=== PATIENT | male | born 1935 | race Caucasian/White ===

== ENCOUNTER 2018-02-26 20:10 | Observation (INO) | payer MEDICARE, OTHER ==
[~2018-02-26] VITALS: Ht 182.9 cm; Wt 73.6 kg
[~2018-02-26 20:10] MED LIST: ALLO100T GT; AMLO10TA PO; AMLO10TA82 PO; ASPI-875 PO; ATOR40TA70 PO; BNZ20T PO; FISH OIL 1,2001 EAC1 PO; GABA-488 PO; GARL200T PO; GARL400T13 PO; GLIM4TAB PO; HCT25T PO; HYDR-707 PO; HYDR118S10 PO; HYOS0.1217 PO; HYOS0.127 SL; LEVO500T69 PO; MTP50T PO; MULT-974 PO; OMEGA Q PLUS PO; PNT40TEC PO; [UNRECOGNIZED DRUG - OTHER] PO
--- OUTSIDE RECORDS SUMMARY | 2018-02-26 20:16 | XMS REPORT | Continuity of Care Document ---
Author Author [facility] Organization [facility] Address Unknown Phone Unavailable Allergies Active Description Code Type Severity Reaction Onset Reported/Identified Relationship to Patient Clinical Status Yes NO KNOWN DRUG ALLERGIES UNKNOWN NO KNOWN DRUG ALLERG Yes No Known Drug Allergies [id number] Drug Allergy Unknown N/A 01/20/2011 Medications Medication Packaging Start Date Stop Date Route Dosage Sig ALLOPURINOL TAB 100 MG (ZYLOPRIM) MG 02/06/2018 03/08/2018 BID&0800,2000 OLANZAPINE TAB 2.5 MG (ZYPREXA) MG 02/06/2018 02/06/2018 ONCE&2030 MELATONIN TAB 3 MG (MELATONIN) MG 02/06/2018 02/06/2018 PRN ONCE ACETAMINOPHEN ORAL TABLET 325mg(Tylenol) MG 02/07/2018 03/08/2018 PRN EVERY 6 Hour ALUM/MAG/SIMETH 30CC LIQ (MYLANTA PLUS) cc 02/07/2018 03/09/2018 PRN Q4H POLYETHYLENE GLYCOL POWDER UD PWD (MIRALAX 17GM UNIT DOSE PAKS) gm 02/07/2018 03/09/2018 PRN Q3H ACETAMINOPHEN ORAL TABLET 325mg(Tylenol) MG 02/07/2018 03/09/2018 PRN Q6H CALMOSEPTINE OINT TUBE (RISAMINE OINT) tano 02/07/2018 03/09/2018 PRN QID OLANZAPINE TAB 2.5 MG (ZYPREXA) MG 02/07/2018 02/14/2018 PRN Q6H LOPERAMIDE CAP 2 MG (IMMODIUM) MG 02/07/2018 03/09/2018 PRN QID ALLOPURINOL TAB 100 MG (ZYLOPRIM) MG 02/07/2018 03/08/2018 BID&0800,2000 LACTULOSE SYRUP LIQ 20 GM/30CC (CHRONULAC SYRUP) GM 02/07/2018 03/08/2018 BID&0800,2000 MILK OF MAGNESIA LIQ ml 02/07/2018 03/09/2018 PRN BID MELOXICAM TAB 7.5 MG (MOBIC) MG 03/08/2018 Daily&0900 AMLODIPINE TAB 10 MG (NORVASC) MG 02/07/2018 02/13/2018 Daily&0900 GLIPIZIDE TAB 5 MG (GLUCOTROL) MG 02/07/2018 03/08/2018 Daily&0900 BENAZEPRIL TAB 20 MG (LOTENSIN) MG 02/07/2018 02/13/2018 Daily&0900 BISACODYL SUPPOS 10 MG (DULCOLAX SUPPOS) MG 02/07/2018 03/09/2018 PRN Daily Lorazepam oral tablet 0.25mg (Ativan) MG 02/07/2018 02/17/2018 PRN Q6H OLANZAPINE TAB 2.5 MG (ZYPREXA) MG 02/07/2018 02/07/2018 ONCE&1700 TAMSULOSIN CAP 0.4 MG (FLOMAX) Dose(s) 02/07/2018 03/08/2018 QPM&1800 SIMVASTATIN TAB 10 MG (ZOCOR) MG 03/08/2018 QPM&2000 TRAZODONE TAB 50 MG (DESYREL) MG 03/09/2018 PRN QHS MIRTAZAPINE TAB 15 MG (REMERON) MG 02/07/2018 03/08/2018 QHS&2100 MELATONIN TAB 3 MG (MELATONIN) MG 02/07/2018 03/09/2018 PRN QHS OLANZAPINE TAB 2.5 MG (ZYPREXA) MG 02/08/2018 02/15/2018 PRN Q6H OLANZAPINE TAB 2.5 MG (ZYPREXA) MG 02/08/2018 02/08/2018 ONCE&1130 POLY/BACI/NEOM OINT OINT (NEOSPORIN) tano 02/08/2018 02/08/2018 ONCE&1340 DIVALPROEX SPRINKLE CAP 125 MG (DEPAKOTE SPRINKLE) MG 02/08/2018 02/08/2018 PRN ONCE OLANZAPINE TAB 5 MG (ZYPREXA) MG 03/10/2018 BID&0800,2000 APIXABAN TAB 5 MG (ELIQUIS) MG 02/23/2018 CONTINUOUSEVERY 0 Hour APIXABAN TAB 5 MG (ELIQUIS) MG 03/10/2018 QAM&0800 POLY/BACI/NEOMY 1APP OINT (NEOSPORIN) tano 02/09/2018 02/15/2018 Daily&0900 POLY/BACI/NEOM OINT OINT (NEOSPORIN) tano 02/09/2018 02/15/2018 Daily&0900 OLANZAPINE TAB 2.5 MG (ZYPREXA) MG 02/11/2018 02/11/2018 ONCE&2237 QUETIAPINE TAB 25 MG (SEROQUEL) MG 02/12/2018 03/14/2018 PRN Q6H QUETIAPINE TAB 25 MG (SEROQUEL) MG 02/12/2018 03/13/2018 QPM&2000 QUETIAPINE TAB 25 MG (SEROQUEL) MG 02/13/2018 03/14/2018 QAM&0800 HALOPERIDOL VIAL INJ 5 MG/CC (HALDOL 1CC VIAL) MG 02/13/2018 02/13/2018 PRN ONCE OLANZAPINE TAB 2.5 MG (ZYPREXA) MG 02/13/2018 02/20/2018 PRN Q6H OLANZAPINE IM VIAL INJ 10 MG/VIAL (ZYPREXA IM VIAL) MG 02/13/2018 03/15/2018 PRN Q6H AMLODIPINE TAB 10 MG (NORVASC) MG 02/16/2018 03/17/2018 Daily&0900 BENAZEPRIL TAB 20 MG (LOTENSIN) MG 02/16/2018 02/22/2018 Daily&0900 IPRATROPIUM/ALBUTEROL INH SOLN (DUO-NEB INH SOLN) MLS 02/16/2018 02/26/2018 TID&0800,1400,2000 Problems Date Dx Coded Attending Type Code Diagnosis Diagnosed By 02/06/2018 Dilcia Miller F03 UNSPECIFIED DEMENTIA 02/06/2018 Dilcia Miller R45.851 SUICIDAL IDEATIONS 02/06/2018 Dilcia Miller V62.84 SUICIDAL IDEATION 02/06/2018 Dilcia Miller F03 UNSPECIFIED DEMENTIA 02/06/2018 Dilcia Miller R45.851 SUICIDAL IDEATIONS 02/06/2018 Dilcia Miller V62.84 SUICIDAL IDEATION 02/08/2018 Dilcia Miller F03 UNSPECIFIED DEMENTIA 02/08/2018 Dilcia Miller R45.851 SUICIDAL IDEATIONS 02/08/2018 Dilcia Miller V62.84 SUICIDAL IDEATION 02/08/2018 Dilcia Miller F03 UNSPECIFIED DEMENTIA 02/08/2018 Dilcia Miller R45.851 SUICIDAL IDEATIONS 02/08/2018 Dilcia Miller V62.84 SUICIDAL IDEATION 02/12/2018 Dilcia Miller F03 UNSPECIFIED DEMENTIA 02/12/2018 Dilcia Miller R45.851 SUICIDAL IDEATIONS 02/12/2018 Dilcia Miller V62.84 SUICIDAL IDEATION Procedures There is no data. Results Test Result Range Rapid Drug Screen + ETOH,Medical - 02/06/18 18:38 Amphetamine NEGATIVE NEGATIVE Barbiturates NEGATIVE NEGATIVE Benzodiazepines NEGATIVE NEGATIVE Cocaine NEGATIVE NEGATIVE Ethanol, Urine <10.00 mg/dL 20.00-80.00 Marijuana NEGATIVE NEGATIVE Methylenedioxymethamphetamine NEGATIVE NEGATIVE Opiates NEGATIVE NEGATIVE Oxycodone NEGATIVE NEGATIVE Phencyclidine NEGATIVE NEGATIVE Propoxyphene NEGATIVE NEGATIVE Tricyclic Antidepressant NEGATIVE NEGATIVE EKG - 02/06/18 18:38 EKG Complete Lipid Panel - 02/07/18 05:30 C/HDL 3.8 3.7-6.7 Cholesterol 121 mg/dL 100-240 HDL 32 mg/dL 30-85 LDL-Calculated 73 mg/dL 0-100 Trig 80 mg/dL 35-160 VLDL 16 mg/dL 0-42 EKG - 02/07/18 11:18 EKG Complete BMP - 02/08/18 04:57 Anion Gap 14 6-14 BUN 33 mg/dL 5-25 Calcium 8.5 mg/dL 8.3-10.4 Chloride 114 mmol/L 95-114 CO2 22 mEq/L 22-33 Creat 1.44 mg/dL 0.50-1.50 eGFR 47 mL/min/1.73m2 >59 Glucose 68 mg/dL 70-110 Osmo 306 280-295 Potassium 3.8 mmol/L 3.5-5.3 Sodium 146 mmol/L 134-148 Encounters ACCT No. Visit Date/Time Discharge Status Pt. Type Provider Facility Loc./Unit Complaint [id number] 03/17/2014 10:57:00 03/22/2014 10:30:00 DIS Inpatient [id number] 01/29/2014 08:22:00 01/29/2014 23:59:59 CLS Outpatient [id number] 10/11/2013 11:56:00 10/11/2013 23:59:59 CLS Outpatient [id number] 09/24/2013 14:56:00 09/24/2013 23:59:59 CLS Outpatient [id number] 08/27/2013 14:01:00 08/27/2013 23:59:59 CLS Outpatient [id number] 06/05/2013 16:12:00 06/05/2013 23:59:59 CLS Outpatient [id number] 05/22/2013 11:55:00 05/28/2013 11:30:00 DIS Inpatient [id number] 05/18/2013 09:37:00 05/18/2013 23:59:59 CLS Outpatient [id number] 05/15/2013 12:00:00 05/15/2013 23:59:59 CLS Outpatient [id number] 05/03/2013 02:55:00 05/03/2013 05:19:00 DIS Emergency [id number] 02/26/2018 20:12:00 ACT Emergency RODRIGO ABREU MD [facility] ER OBSERVATION [id number] 02/06/2018 20:00:00 02/17/2018 12:04:[address] [facility] [id number] 02/06/2018 21:29:57 Document Registration
--- NOTE | 2018-02-26 20:54 | ED Psychosocial ---
General Chief Complaint: Psych/Social Disorder Stated Complaint: OBSERVATION Nursing Triage Note: PT BROUGHT IN BY EMS FROM [facility] WITH COMPLAINT OF SUICIDIAL THOUGHTS. EARLIER TONIGHT, PT ATTEMPTED TO WRAP ARM PROTECTOR AROUND HIS NECK. PT IS RECENT DISCHARGE FROM [facility]. [facility] WAS CONTACTED, BUT DO NOT HAVE A BED UNTIL TOMORROW. Source: patient, family (son Kenyon) Exam Limitations: clinical condition (dementia) History of Present Illness Date Seen by Provider: Feb 26, 2018 Time Seen by Provider: 20:44 Initial Comments Patient presents to the ER by EMS from the living center where he was staying and apparently his son walked in and saw that he had a sock or cord wrapped up twisted around his neck trying to kill himself. He was making suicidal statements. Patient has never made a suicidal attempt or suicidal statement before according to the son but he has stayed in [facility] just prior to being [facility] for [facility]. He has some red elliott on his neck and the son was worried about it might of hurt something in his neck. The patient says is having a little pain on the left side of his neck. He is not having any nausea, pain elsewhere, shortness of breath, stridor, wheezing , fevers or chills. He ate dinner before coming over. Allergies and Home Medications Allergies Coded Allergies: No Known Drug Allergies (Unverified , 01/20/11) Home Medications Allopurinol 100 Mg Tab, 100 MG GT DAILY Prescribed by: FREDERICK MARSHALL on 03/22/14908 Amlodipine Besylate 10 Mg Tablet, 20 MG PO DAILY, (Reported) TAKES 2 (10MG) TABLETS DAILY Atorvastatin Calcium 40 Mg Tablet, 40 MG PO DAILY, (Reported) Benazepril Hcl 20 Mg Tab, 40 MG PO DAILY, (Reported) TAKES 2 (20MG) TABLETS DAILY Gabapentin 300 Mg Capsule, 300 MG PO TID, (Reported) Glimepiride 4 Mg Tablet, 8 MG PO DAILY, (Reported) TAKES 2 (4MG) TABLETS DAILY Hydrocodone/Acetaminophen 1 Each Tablet, 1 TAB PO Q6H PRN for PAIN, (Reported) Levofloxacin 500 Mg Tab, 1 EACH PO DAILY Prescribed by: FREDERICK MARSHALL on 03/22/14 09 Metoprolol Tartrate 50 Mg Tablet, 50 MG PO BID, (Reported) Patient Home Medication List Home Medication List Reviewed: Yes Constitutional: No chills, No diaphoresis, No fever, No malaise EENTM: No ear discharge, No ear pain, No double vision, No eye pain Respiratory: No cough, No short of breath, No stridor, No wheezing Cardiovascular: No chest pain, No edema Gastrointestinal: No abdominal pain, No constipation, No nausea Genitourinary: No discharge, No dysuria Musculoskeletal: No back pain, No joint pain Skin: No pruritus, No rash Past Dybjqtl-Znrphf-Kvzlsk Hx Patient Social History Alcohol Use: Denies Use Recreational Drug Use: No Smoking Status: Former Smoker Recent Foreign Travel: No Contact w/Someone Who Travel: No Recent Infectious Disease Expo: No Immunizations Up To Date Tetanus Booster (TDap): Unknown PED Vaccines UTD: Yes Date of Pneumonia Vaccine: Aug 26, 2013 Past Medical History Surgeries: Yes Respiratory: No Cardiac: Yes Hypertension Neurological: Yes Dementia Reproductive Disorders: No Sexually Transmitted Disease: No Genitourinary: Yes Benign Prostatic Hyperpl, Kidney Stones Gastrointestinal: Yes Chronic Constipation, Diverticulosis Musculoskeletal: Yes (FELL OFF A LADDER) Arthritis, Chronic Back Pain Endocrine: Yes Diabetes, Non-Insulin dep Hearing Impairment: Hard of Hearing Cancer: No Psychosocial: Yes Suicide Attempts, Depression Nursing Suicide Risk Notes: PER [facility], PT WRAPPED ARM PROTECTOR AROUND NECK. Integumentary: Yes (wearing a sock dsg to left FA and left knee abrasion/skin tear) Recent Skin Changes Blood Disorders: No Family Medical History Patient reports no known family medical history. Physical Exam Vital Signs Vital Signs - First Documented 02/26/18 20:13 Temp 98.0 Pulse 93 Resp 20 B/P (MAP) 147/83 (104) Pulse Ox 96 O2 Delivery Room Air Capillary Refill : Less Than 3 Seconds General Appearance: WD/WN, no apparent distress HEENT: PERRL/EOMI, normal ENT inspection, TMs normal, pharynx normal Neck: full range of motion, supple, other (erythematous abrasions bilat) Respiratory: chest non-tender, lungs clear, normal breath sounds, no respiratory distress, no accessory muscle use Cardiovascular: normal peripheral pulses, regular rate, rhythm, no edema Gastrointestinal: normal bowel sounds, non tender, soft Neurologic/Psychiatric: alert, normal mood/affect, oriented x 3 Appearance/Memory: appropriate appearance, neat, impaired insight, impaired recent memory Behavior/Eye Contact: cooperative, good eye contact Thoughts/Hallucinations: normal thought pattern, no apparent hallucination Skin: normal color, warm/dry Progress/Results/Core Measures Results/Orders Lab Results Laboratory Tests Test 02/26/18 21:40 Range/Units White Blood Count 9.9 4.3-11.0 10^3/uL Red Blood Count 3.81 L 4.35-5.85 10^6/uL Hemoglobin 12.7 L 13.3-17.7 G/DL Hematocrit 37 L 40-54 % Mean Corpuscular Volume 98 80-99 FL Mean Corpuscular Hemoglobin 33 25-34 PG Mean Corpuscular Hemoglobin Concent 34 32-36 G/DL Red Cell Distribution Width 14.8 H 10.0-14.5 % Platelet Count 226 130-400 10^3/uL Mean Platelet Volume 10.2 7.4-10.4 FL Neutrophils (%) (Auto) 50 42-75 % Lymphocytes (%) (Auto) 38 12-44 % Monocytes (%) (Auto) 8 0-12 % Eosinophils (%) (Auto) 5 0-10 % Basophils (%) (Auto) 0 0-10 % Neutrophils # (Auto) 4.9 1.8-7.8 X 10^3 Lymphocytes # (Auto) 3.7 1.0-4.0 X 10^3 Monocytes # (Auto) 0.8 0.0-1.0 X 10^3 Eosinophils # (Auto) 0.5 H 0.0-0.3 10^3/uL Basophils # (Auto) 0.0 0.0-0.1 10^3/uL Urine Color YELLOW Urine Clarity CLEAR Urine pH 5 5-9 Urine Specific [place] 1.020 1.016-1.022 Urine Protein 4+ NEGATIVE Urine Glucose (UA) 2+ H NEGATIVE Urine Ketones NEGATIVE NEGATIVE Urine Nitrite NEGATIVE NEGATIVE Urine Bilirubin NEGATIVE NEGATIVE Urine Urobilinogen NORMAL NORMAL MG/DL Urine Leukocyte Esterase NEGATIVE NEGATIVE Urine RBC (Auto) 3+ H NEGATIVE Urine RBC 5-10 H /HPF Urine WBC NONE /HPF Urine Crystals NONE /LPF Urine Bacteria NONE /HPF Urine Casts NONE /LPF Urine Mucus NEGATIVE /LPF Urine Culture Indicated NO Sodium Level 146 H 135-145 MMOL/L Potassium Level 4.1 3.6-5.0 MMOL/L Chloride Level 114 H 98-107 MMOL/L Carbon Dioxide Level 21 21-32 MMOL/L Anion Gap 11 5-14 MMOL/L Blood Urea Nitrogen 31 H 7-18 MG/DL Creatinine 1.65 H 0.60-1.30 MG/DL Estimat Glomerular Filtration Rate 40 BUN/Creatinine Ratio 19 Glucose Level 256 H 70-105 MG/DL Calcium Level 8.8 8.5-10.1 MG/DL Total Bilirubin 0.5 0.1-1.0 MG/DL Aspartate Amino Transf (AST/SGOT) 39 H 5-34 U/L Alanine Aminotransferase (ALT/SGPT) 44 0-55 U/L Alkaline Phosphatase 89 40-136 U/L Total Protein 6.1 L 6.4-8.2 GM/DL Albumin 3.6 3.2-4.5 GM/DL Salicylates Level < 5.0 L 5.0-20.0 MG/DL Urine Opiates Screen NEGATIVE NEGATIVE Urine Oxycodone Screen NEGATIVE NEGATIVE Urine Methadone Screen NEGATIVE NEGATIVE Urine Propoxyphene Screen NEGATIVE NEGATIVE Acetaminophen Level < 10 L 10-30 UG/ML Urine Barbiturates Screen NEGATIVE NEGATIVE Ur Tricyclic Antidepressants Screen POSITIVE H NEGATIVE Urine Phencyclidine Screen NEGATIVE NEGATIVE Urine Amphetamines Screen NEGATIVE NEGATIVE Urine Methamphetamines Screen NEGATIVE NEGATIVE Urine Benzodiazepines Screen NEGATIVE NEGATIVE Urine Cocaine Screen NEGATIVE NEGATIVE Urine Cannabinoids Screen NEGATIVE NEGATIVE Serum Alcohol < 10 <10 MG/DL My Orders Orders - BREA JANE Ua Culture If Indicated (02/26/18 20:49) Cbc With Automated Diff (02/26/18 20:49) Comprehensive Metabolic Panel (02/26/18 20:49) Alcohol (02/26/18 20:49) Drug Screen Stat (Urine) (02/26/18 20:49) Acetaminophen (02/26/18 20:49) Salicylate (02/26/18 20:49) Saline Lock/Iv-Start (02/26/18 20:49) Monitor-Rhythm Ecg Trace Only (02/26/18 20:49) Ct Cervical Spine Wo (02/26/18 20:49) Vital Signs/I&O 02/26/18 20:13 Temp 98.0 Pulse 93 Resp 20 B/P (MAP) 147/83 (104) Pulse Ox 96 O2 Delivery Room Air Blood Pressure Mean: 104 Diagnostic Imaging Diagonstic Imaging: CT Plain Films/CT/US/NM/MRI: c-spine Comments NAME: LYNN ABARCA [facility] REC#: [id number] PHYSICIAN: BREA JANE MD CC: BUFFY MARTIN MD; BREA JANE Page 2 of 2 RADIOLOGY REPORT [facility] [place] [place] CC: BUFFY MARTIN MD; BREA JANE Page 1 of 2 RADIOLOGY REPORT NAME: LYNN ABARCA [facility] REC#: [id number] PT STATUS: REG ER : 1935 PHYSICIAN: BREA JANE MD ADMIT DATE: 02/26/18/ER Signed Date of Exam: 02/26/18 CT CERVICAL SPINE WO PROCEDURE: CT cervical spine without contrast. TECHNIQUE: Multiple contiguous axial images were obtained through the cervical spine without the use of intravenous contrast. Sagittal and coronal reformations were then performed. INDICATION: Neck pain. COMPARISON: 03/16/2014. FINDINGS: Sagittal and coronal reformatted images are available. There is loss of normal lordotic curve due to marked degenerative disc disease and facet disease from C3-C7. There is loss of disc space height with hypertrophic bony bridging of the endplates from C3-C7. There is hypertrophy of the uncovertebral joints noted as well. There is moderate to severe encroachment upon the left neural foramen at C4-C5 due to uncovertebral hypertrophy. Facets show no evidence of fracture. No evidence of locked facet. The surrounding soft tissues appear normal. IMPRESSION: Advanced degenerative cervical disc disease C3 through C7. Overall appearance has changed very little when compared with previous examination. No acute abnormality is demonstrated. Dictated by: Dictated on workstation # [id number] Dict: 02/26/182107 Trans: 02/26/182141 Interpreted by: BUFFY MARTIN MD Electronically signed by: BUFFY MARTIN MD 02/26/182141 Reviewed: Reviewed by Me Departure Communication (Admissions) Time/Spoke to Admitting Phy: 22:27 Sara: Discussed case lab plan and will consult social media marketer to get placed in [facility] tomorrow. Impression Primary Impression: Suicide attempt by self-inflicted suffocation Disposition: 09 ADMITTED INPATIENT Condition: Stable Admissions Decision to Admit Reason: Admit from ER (General) Decision to Admit/Date: Feb 26, 2018 Time/Decision to Admit Time: 22:28 Departure-Patient Inst. Referrals: FREDERICK MARSHALL MD (PCP/Family) Primary Care Physician Copy Copies To 1: FREDERICK MARSHALL MD, TITUS J Feb 26, 2018 20:54
--- NOTE | 2018-02-26 21:44 | Diagnostic Imaging Report ---
PROCEDURE: CT cervical spine without contrast. TECHNIQUE: Multiple contiguous axial images were obtained through the cervical spine without the use of intravenous contrast. Sagittal and coronal reformations were then performed. INDICATION: Neck pain. COMPARISON: 03/16/2014. FINDINGS: Sagittal and coronal reformatted images are available. There is loss of normal lordotic curve due to marked degenerative disc disease and facet disease from C3-C7. There is loss of disc space height with hypertrophic bony bridging of the endplates from C3-C7. There is hypertrophy of the uncovertebral joints noted as well. There is moderate to severe encroachment upon the left neural foramen at C4-C5 due to uncovertebral hypertrophy. Facets show no evidence of fracture. No evidence of locked facet. The surrounding soft tissues appear normal. IMPRESSION: Advanced degenerative cervical disc disease C3 through C7. Overall appearance has changed very little when compared with previous examination. No acute abnormality is demonstrated. Dictated by: Dictated on workstation # [id number]
[2018-02-26 21:54] LABS: BILIRUBIN,URINE NEGATIVE (NEGATIVE); CLARITY,URINE CLEAR; COLOR,URINE YELLOW; GLUCOSE, URINE (UA) 2+ (NEGATIVE); KETONES,URINE NEGATIVE (NEGATIVE); LEUKOCYTE ESTERASE ,URINE NEGATIVE (NEGATIVE); NITRITE,URINE NEGATIVE (NEGATIVE); PH,URINE 5 (5-9); PROTEIN,URINE 4+ (NEGATIVE); UROBILINOGEN,URINE NORMAL (NORMAL)
[2018-02-26 22:01] LABS: BASOPHILS % (AUTO) 0 % (0-10); EOSINOPHILS # (AUTO) 0.5 10^3/uL (0.0-0.3); EOSINOPHILS % (AUTO) 5 % (0-10); HEMATOCRIT 37 % (40-54); HEMOGLOBIN 12.7 G/DL (13.3-17.7); LYMPHOCYTES # (AUTO) 3.7 X 10^3 (1.0-4.0); LYMPHOCYTES % (AUTO) 38 % (12-44); MEAN CORPUSCULAR HEMOGLOBIN 33 PG (25-34); MEAN CORPUSCULAR HGB CONC 34 G/DL (32-36); MEAN CORPUSCULAR VOLUME 98 FL (80-99); MEAN PLATELET VOLUME 10.2 FL (7.4-10.4); MONOCYTES # (AUTO) 0.8 X 10^3 (0.0-1.0); MONOCYTES % (AUTO) 8 % (0-12); NEUTROPHILS # (AUTO) 4.9 X 10^3 (1.8-7.8); NEUTROPHILS % (AUTO) 50 % (42-75); PLATELET COUNT 226 10^3/uL (130-400); RED BLOOD COUNT 3.81 10^6/uL (4.35-5.85); RED CELL DISTRIBUTION WIDTH 14.8 % (10.0-14.5); WHITE BLOOD COUNT 9.9 10^3/uL (4.3-11.0)
[2018-02-26 22:06] LABS: AMPHETAMINE SCREEN, URINE NEGATIVE (NEGATIVE); BARBITURATE SCREEN URINE NEGATIVE (NEGATIVE); BENZODIAZEPINES SCREEN URINE NEGATIVE (NEGATIVE); CANNABINOID SCREEN, URINE NEGATIVE (NEGATIVE); COCAINE SCREEN URINE NEGATIVE (NEGATIVE); METHADONE STAT NEGATIVE (NEGATIVE); METHAMPHETAMINE SCREEN URINE S NEGATIVE (NEGATIVE); OPIATE SCREEN URINE NEGATIVE (NEGATIVE); OXYCODONE STAT NEGATIVE (NEGATIVE); PROPOXYPHENE STAT NEGATIVE (NEGATIVE); TRICYCLIC ANTIDEPRESSANTS SCRE POSITIVE (NEGATIVE)
[2018-02-26 22:14] LABS: ALANINE AMINOTRANSFERASE 44 U/L (0-55); ALBUMIN 3.6 GM/DL (3.2-4.5); ALKALINE PHOSPHATASE 89 U/L (40-136); BILIRUBIN,TOTAL 0.5 MG/DL (0.1-1.0); BUN/CREATININE RATIO 19; CALCIUM 8.8 MG/DL (8.5-10.1); CARBON DIOXIDE 21 MMOL/L (21-32); CHLORIDE 114 MMOL/L (98-107); CREATININE SERUM 1.65 MG/DL (0.60-1.30); GFR ESTIMATED 40; GLUCOSE 256 MG/DL (70-105); POTASSIUM 4.1 MMOL/L (3.6-5.0); SALICYLATE < 5.0 MG/DL (5.0-20.0); SODIUM 146 MMOL/L (135-145); TOTAL PROTEIN 6.1 GM/DL (6.4-8.2)
[2018-02-26 22:21] LABS: ACETAMINOPHEN < 10 UG/ML (10-30)
--- OUTSIDE RECORDS SUMMARY | 2018-02-26 22:53 | XMS REPORT | Continuity of Care Document ---
Author Author [facility] Organization [facility] Address Unknown Phone Unavailable Allergies Active Description Code Type Severity Reaction Onset Reported/Identified Relationship to Patient Clinical Status Yes NO KNOWN DRUG ALLERGIES UNKNOWN NO KNOWN DRUG ALLERG Yes No Known Drug Allergies [id number] Drug Allergy Unknown N/A 01/20/2011 Medications Medication [...] 3.8 mmol/L 3.5-5.3 Sodium 146 mmol/L 134-148 Complete blood count (CBC) with automated white blood cell (WBC) differential - 02/26/18 21:40 Blood leukocytes automated count (number/volume) 9.9 10*3/uL 4.3-11.0 Blood erythrocytes automated count (number/volume) 3.81 10*6/uL 4.35-5.85 Venous blood hemoglobin measurement (mass/volume) 12.7 g/dL 13.3-17.7 Blood hematocrit (volume fraction) 37 % 40-54 Automated erythrocyte mean corpuscular volume 98 [foz_us] 80-99 Automated erythrocyte mean corpuscular hemoglobin (mass per erythrocyte) 33 pg 25-34 Automated erythrocyte mean corpuscular hemoglobin concentration measurement ( mass/volume) 34 g/dL 32-36 Automated erythrocyte distribution width ratio 14.8 % 10.0-14.5 Automated blood platelet count (count/volume) 226 10*3/uL 130-400 Automated blood platelet mean volume measurement 10.2 [foz_us] 7.4-10.4 Automated blood neutrophils/100 leukocytes 50 % 42-75 Automated blood lymphocytes/100 leukocytes 38 % 12-44 Blood monocytes/100 leukocytes 8 % 0-12 Automated blood eosinophils/100 leukocytes 5 % 0-10 Automated blood basophils/100 leukocytes 0 % 0-10 Blood neutrophils automated count (number/volume) 4.9 10*3 1.8-7.8 Blood lymphocytes automated count (number/volume) 3.7 10*3 1.0-4.0 Blood monocytes automated count (number/volume) 0.8 10*3 0.0-1.0 Automated eosinophil count 0.5 10*3/uL 0.0-0.3 Automated blood basophil count (count/volume) 0.0 10*3/uL 0.0-0.1 Urine drug screening test - 02/26/18 21:40 Urine phencyclidine detection by screening method NEGATIVE NEGATIVE Urine benzodiazepines detection by screening method NEGATIVE NEGATIVE Urine cocaine detection NEGATIVE NEGATIVE Urine amphetamines detection by screening method NEGATIVE NEGATIVE Urine methamphetamine detection by screening method NEGATIVE NEGATIVE Urine cannabinoids detection by screening method NEGATIVE NEGATIVE Urine opiates detection by screening method NEGATIVE NEGATIVE Urine barbiturates detection NEGATIVE NEGATIVE Screening urine tricyclic antidepressants detection POSITIVE NEGATIVE Urine methadone detection by screening method NEGATIVE NEGATIVE Urine oxycodone detection NEGATIVE NEGATIVE Urine propoxyphene detection NEGATIVE NEGATIVE Complete urinalysis with reflex to culture - 02/26/18 21:40 Urine color determination YELLOW NRG Urine clarity determination CLEAR NRG Urine pH measurement by test strip 5 5-9 Specific gravity of urine by test strip 1.020 1.016- 1.022 Urine protein assay by test strip, semi-quantitative 4+ NEGATIVE Urine glucose detection by automated test strip 2+ NEGATIVE Erythrocytes detection in urine sediment by light microscopy 3+ NEGATIVE Urine ketones detection by automated test strip NEGATIVE NEGATIVE Urine nitrite detection by test strip NEGATIVE NEGATIVE Urine total bilirubin detection by test strip NEGATIVE NEGATIVE Urine urobilinogen measurement by automated test strip (mass/volume) NORMAL NORMAL Urine leukocyte esterase detection by dipstick NEGATIVE NEGATIVE Automated urine sediment erythrocyte count by microscopy (number/high power field) [HPF] NRG Automated urine sediment leukocyte count by microscopy (number/high power field ) NONE NRG Bacteria detection in urine sediment by light microscopy NONE NRG Crystals detection in urine sediment by light microscopy NONE NRG Casts detection in urine sediment by light microscopy NONE NRG Mucus detection in urine sediment by light microscopy NEGATIVE NRG Complete urinalysis with reflex to culture NO [facility] Comprehensive metabolic panel - 02/26/18 21:40 Serum or plasma sodium measurement (moles/volume) 146 mmol/L 135-145 Serum or plasma potassium measurement (moles/volume) 4.1 mmol/L 3.6-5.0 Serum or plasma chloride measurement (moles/volume) 114 mmol/L 98-107 Carbon dioxide 21 mmol/L 21-32 Serum or plasma anion gap determination (moles/volume) 11 mmol/L 5-14 Serum or plasma urea nitrogen measurement (mass/volume) 31 mg/dL 7-18 Serum or plasma creatinine measurement (mass/volume) 1.65 mg/dL 0.60-1.30 Serum or plasma urea nitrogen/creatinine mass ratio 19 NRG Serum or plasma creatinine measurement with calculation of estimated glomerular filtration rate 40 NRG Serum or plasma glucose measurement (mass/volume) 256 mg/dL 70-105 Serum or plasma calcium measurement (mass/volume) 8.8 mg/dL 8.5-10.1 Serum or plasma total bilirubin measurement (mass/volume) 0.5 mg/dL 0.1-1.0 Serum or plasma alkaline phosphatase measurement (enzymatic activity/volume) 89 U/L 40-136 Serum or plasma aspartate aminotransferase measurement (enzymatic activity/ volume) 39 U/L 5-34 Serum or plasma alanine aminotransferase measurement (enzymatic activity/volume ) 44 U/L 0-55 Serum or plasma protein measurement (mass/volume) 6.1 g/dL 6.4-8.2 Serum or plasma albumin measurement (mass/volume) 3.6 g/dL 3.2-4.5 Serum or plasma salicylates measurement (mass/volume) - 02/26/18 21:40 Serum or plasma salicylates measurement (mass/volume) < mg/dL 5.0-20.0 Serum or plasma acetaminophen measurement (mass/volume) - 02/26/18 21:40 Serum or plasma acetaminophen measurement (mass/volume) < ug/mL 10-30 Serum or plasma ethanol measurement (mass/volume) - 02/26/18 21:40 Serum or plasma ethanol measurement (mass/volume) < mg/dL <10 Encounters ACCT No. Visit Date/Time Discharge Status Pt. Type Provider Facility Loc./Unit Complaint [id number] 03/17/2014 10:57:00 03/22/2014 10:30:00 DIS Inpatient [id number] 01/29/2014 08:22:00 01/29/2014 23:59:59 CLS Outpatient [id number] 10/11/2013 11:56:00 10/11/2013 23:59:59 CLS Outpatient [id number] 09/24/2013 14:56:00 09/24/2013 23:59:59 CLS Outpatient [id number] 08/27/2013 14:01:00 08/27/2013 23:59:59 CLS Outpatient [id number] 06/05/2013 16:12:00 06/05/2013 23:59:59 CLS Outpatient [id number] 05/22/2013 11:55:00 05/28/2013 11:30:00 DIS Inpatient [id number] 05/18/2013 09:37:00 05/18/2013 23:59:59 CLS Outpatient [id number] 05/15/2013 12:00:00 05/15/2013 23:59:59 CLS Outpatient [id number] 05/03/2013 02:55:00 05/03/2013 05:19:00 DIS Emergency [id number] 02/26/2018 20:12:00 ACT Emergency RODRIGO ABREU MD [facility] ER OBSERVATION [id number] 02/06/2018 20:00:00 02/17/2018 12:04:00 DIS Inpatient Paul [facility] [id number] 02/06/2018 21:29:57 Document Registration
[2018-02-26 23:30] VITALS: BP 146/79
[2018-02-26] MEDS ORDERED: LORazepam INJ 2 MG/ML (ATIVAN) VIAL IV PRN (23:45)
[2018-02-26] MEDS ORDERED: ACETAMINOPHEN 500 MG TAB (TYLENOL) PO PRN (23:45)
[2018-02-26] MEDS ORDERED: ONDANSETRON 4 MG/2 ML (SDV) Z0FRAN IV PRN (23:45)
[2018-02-27] MEDS ORDERED: GLIP10TA13 PO (01:16)
[2018-02-27] MEDS ORDERED: LACT20SO2 PO (02:07)
[2018-02-27] MEDS ORDERED: BNZ40T PO (02:07)
[2018-02-27] MEDS ORDERED: MIRT15TA3 PO (02:07)
[2018-02-27] MEDS ORDERED: TAMS0.4C2 PO (02:07)
[2018-02-27] MEDS ORDERED: ALLO100T PO (02:07)
[2018-02-27] MEDS ORDERED: MELO7.5T46 PO (02:07)
[2018-02-27] MEDS ORDERED: QUET25TA PO ×2 (02:07)
[2018-02-27 04:00] VITALS: BP 150/68
[2018-02-27] MEDS ORDERED: HALOPERIDOL 5 MG/ML (HALDOL) AMP ONE (04:44)
[2018-02-27] MEDS ORDERED: HALOPERIDOL 5 MG/ML (HALDOL) AMP IM PRN (04:45)
[2018-02-27] MEDS ORDERED: HALOPERIDOL 5 MG/ML (HALDOL) AMP IM ONE (04:45)
[2018-02-27 07:48] VITALS: BP 167/62
[2018-02-27] MEDS ORDERED: ATOR20TA66 PO (08:38)
[2018-02-27] MEDS ORDERED: AMLO10TA2 PO (08:38)
[2018-02-27] MEDS ORDERED: MIRT15TA6 PO (08:38)
--- NOTE | 2018-02-27 10:00 | Short Stay Summary-Hospitalist ---
History of Present Illness HPI/Chief Complaint CC: Suicidal attempt HPI: This is an 82-year-old white male known to me from [facility] [facility] who sees Dr. Her as primary care provider who presents to the ER after a suicide attempt of tying a sock and rope around his neck trying to strangle himself and right when his son arrived in his room at [facility]. He has stated before that if he was to go to jail he would rather kill himself so this is a certain problem because he have some means to do that sort of harm to himself so will need to monitor this and manage this aggressively. He is currently on one-on-one suicide watch and his son is at the bedside. At this current time we're in the midst of moving to [facility] [facility] in a lock-down unit one-on-one suicide watch and to monitor and treat patient accordingly. At this current time patient is sleepy and unable to carry on a conversation with me. Source: RN/MD Exam Limitations: other (severe dementia) Date Seen 02/27/18 Time Seen by Provider: 09:45 Attending Physician Moni Ruiz MD PCP Magdaleno Her MD Referring Physician Date of Admission Feb 26, 2018 at 20:20 Home Medications & Allergies Home Medications Reviewed patient Home Medication Reconciliation performed by pharmacy medication reconciliations physical therapist technician and/or nursing. Patients Allergies have been reviewed. Allergies Allergies Coded Allergies No Known Drug Allergies (Unverified01/20/11) Past Nndkvlo-Hcpxvy-Plezud Hx Past Med/Social Hx: Reviewed Nursing Past Med/Soc Hx, Reviewed and Corrections made Patient Social History Marrital Status: single Employed/Student: retired Alcohol Use: Denies Use Recreational Drug Use: No Smoking Status: Former Smoker Physical Abuse Screen: No Sexual Abuse: No Recent Foreign Travel: No Contact w/other who traveled: No Recent Infectious Disease Expo: No Immunizations Up To Date Tetanus Booster (TDap): Unknown Pediatric: Yes Date of Pneumonia Vaccine: Aug 26, 2013 Seasonal Allergies Seasonal Allergies: No Past Medical History Cardiac: Hypertension Neurological: Dementia Reproductive: No Sexually Transmitted Disease: No Genitourinary: Benign Prostatic Hyperpl, Kidney Stones Gastrointestinal: Chronic Constipation, Diverticulosis Musculoskeletal: Arthritis, Chronic Back Pain Endocrine: Diabetes, Non-Insulin dep Loss of Vision: Bilateral Hearing Impairment: Hard of Hearing Psychosocial: Suicide Attempts, Depression Skin/Integumentary: Recent Skin Changes History of Blood Disorders: No Family History Patient reports no known family medical history. Review of Systems ROS-Unable to Obtain: Pt sleeping Constitutional: see HPI, weakness All Other Systems Reviewed Negative Unless Noted: Yes Physical Exam Physical Exam Vital Signs Vital Signs - First Documented 02/26/18 20:13 Temp 98.0 Pulse 93 Resp 20 B/P (MAP) 147/83 (104) Pulse Ox 96 O2 Delivery Room Air Capillary Refill : Less Than 3 Seconds General Appearance: No Apparent Distress, WD/WN, Chronically ill Eyes: Bilateral Eye Normal Inspection, Bilateral Eye PERRL HEENT: PERRL/EOMI, Normal ENT Inspection, Pharynx Normal Neck: Full Range of Motion, Normal Inspection, Non Tender, Supple, Carotid Bruit Respiratory: Chest Non Tender, Lungs Clear, Normal Breath Sounds, No Accessory Muscle Use, No Respiratory Distress Cardiovascular: No Edema, No Gallop, No JVD, No Murmur, Normal Peripheral Pulses, Irregularly Irregular Gastrointestinal: Normal Bowel Sounds, No Organomegaly, No Pulsatile Mass, Non Tender, Soft Back: Normal Inspection Extremity: Normal Capillary Refill, Normal Inspection, No Pedal Edema Neurologic/Psychiatric: Other (sleeping but disoriented) Skin: Normal Color, Warm/Dry Lymphatic: No Adenopathy Results Results/Procedures Labs Laboratory Tests 02/26/18 21:40 Patient resulted labs reviewed. Short Stay Diagnosis Discharge Diagnosis-Short Stay Admission Diagnosis Assessment: Suicide attempt Dementia severe HTN DM CRI Final Discharge Diagnosis Assessment: Suicide attempt Dementia severe HTN DM CRI Conclusion Plan Plan: [facility] transfer Monitor BP and BS Fall risk DNR Diagnosis/Problems Diagnosis/Problems (1) Suicide attempt by self-inflicted suffocation Status: Acute (2) Diabetes mellitus Status: Chronic Qualifiers: Qualified Codes: E11.59 - Type 2 diabetes mellitus with other circulatory complications (3) Hypertension Status: Chronic Qualifiers: Qualified Codes: I10 - Essential (primary) hypertension (4) Renal insufficiency Status: Chronic Clinical Quality Measures DVT/VTE Risk/Contraindication: Risk Factor Score Per Nursin RFS Level Per Nursing on Admit: 4+=Very High JORGE COLLAZO DO Feb 27, 2018 10:00
[2018-02-27] MEDS ORDERED: MELOXICAM 7.5 MG (MOBIC) TABLET PO SCH (10:08)
[2018-02-27] MEDS ORDERED: amLODIPine 10 MG (NORVASC) TAB PO SCH (10:09)
[2018-02-27] MEDS ORDERED: ALLOPURINOL 100 MG (ZYLOPRIM) TAB PO SCH (10:09)
[2018-02-27] MEDS ORDERED: lisINopril 40 MG (PRINIVIL) TABLET PO SCH (10:11)
[2018-02-27] MEDS ORDERED: glipiZIDE 5 MG (GLUCOTROL) TAB PO SCH (10:12)
[2018-02-27] MEDS ORDERED: QUEtiapine 25 MG (SEROquel) TAB IMMEDIATE RELEASE PO SCH ×2 (10:13→17:00)
[2018-02-27] MEDS ORDERED: LACTULOSE SYRUP 10GM/15ML (ENULOSE) 30ML UDC PO SCH (10:15)
[2018-02-27 12:00] VITALS: BP 139/72
[2018-02-27] MEDS ORDERED: TAMSULOSIN 0.4 MG (FLOMAX) CAP PO SCH (17:00)
[2018-02-27] MEDS ORDERED: MIRTAZAPINE 15 MG (REMERON) TAB PO SCH (21:00)
[2018-02-27] MEDS ORDERED: ATORVASTATIN 20 MG (LIPITOR) TABLET PO SCH (21:00)
== END 2018-02-27 14:04 ==
LOC: EDUNIT# 20:10 → ER 20:12 → 4TH 20:20 → UNDOADMOB 20:20 → 4TH 23:30 → UNDODISOB 02-27 14:04
PROVIDERS: ADMIT Family Medicine; ATTEND Family Medicine
DX: T71.192A Asphyxiation due to mechanical threat to breathing due to other causes, intentional self-harm, initial encounter (principal); I12.9 Hypertensive chronic kidney disease with stage 1 through stage 4 chronic kidney disease, or unspecified chronic kidney disease; N18.9 Chronic kidney disease, unspecified; F03.90 Unspecified dementia, unspecified severity, without behavioral disturbance, psychotic disturbance, mood disturbance, and anxiety; N40.0 Benign prostatic hyperplasia without lower urinary tract symptoms; K59.09 Other constipation; E11.9 Type 2 diabetes mellitus without complications; F32.9 Major depressive disorder, single episode, unspecified; Z66 Do not resuscitate; Z87.442 Personal history of urinary calculi
CPT/HCPCS: 36415; 72125; 80053; 80306; 80320; 80329; 81000; 85025; 93041; G0378

== ENCOUNTER → 2018-07-17 | Outpatient (CLI) | payer MEDICARE, MEDICAID ==
[~2018-07-17] MED LIST changes: +ALLO100T PO; +AMLO10TA6 PO; +ATOR20TA66 PO; +BENA40TA5 PO; +GLIP10TA13 PO; +LACT20SO2 PO; +MELO7.5T46 PO; +MIRT15TA3 PO; +MIRT15TA6 PO; +QUET25TA PO; +TAMS0.4C2 PO
--- NOTE | 2018-07-17 15:48 | Diagnostic Imaging Report ---
INDICATION: Elbow pain. Possible fall. COMPARISON: None. FINDINGS: Two views of the right elbow show no fractures, dislocations, or other acute bony abnormalities identified. Joint spaces are well maintained throughout. The soft tissues appear unremarkable. No radiopaque foreign bodies are identified. IMPRESSION: No acute fractures or dislocations of the right elbow. Dictated by: Dictated on workstation # [id number]
--- NOTE | 2018-07-17 15:52 | Diagnostic Imaging Report ---
INDICATION: Fall. Pain. FINDINGS: Two radiographic views of the right humerus were obtained. There is acute intra-articular comminuted fracture of the proximal right humerus essentially isolated to the humeral head. There may be minimal impaction/dislocation of the fracture fragments. Glenohumeral joint space is otherwise maintained. Included portions of right hemithorax are clear. No unexpected radiopaque foreign bodies are identified. IMPRESSION: 1. Acute fracture of the right humeral head as described above. Dictated by: Dictated on workstation # [id number]
--- NOTE | 2018-07-17 15:54 | Diagnostic Imaging Report ---
INDICATION: Fall and shoulder pain. TIME OF EXAM: 3:41 PM FINDINGS: There is an acute appearing impacted fracture of the proximal humerus. Glenohumeral alignment is normal. There are severe degenerative changes at the glenohumeral joint with sclerosis and joint space narrowing as well as marginal osteophyte formation. Acromioclavicular alignment is normal. Acromiohumeral space is normal. IMPRESSION: Impacted proximal humerus fracture. Dictated by: Dictated on workstation # [id number]
== END ==
LOC: RAD 15:04
PROVIDERS: ATTEND Nurse Practitioner Family
DX: S42.291A Other displaced fracture of upper end of right humerus, initial encounter for closed fracture (principal); M25.521 Pain in right elbow; W19.XXXA Unspecified fall, initial encounter
CPT/HCPCS: 73030; 73060; 73070

== ENCOUNTER → 2018-08-11 | Outpatient (CLI) | payer MEDICARE, MEDICAID ==
--- NOTE | 2018-08-11 10:30 | Diagnostic Imaging Report ---
INDICATION: Right proximal humerus fracture, followup. TIME OF EXAMINATION: 09:49 a.m. COMPARISON: Correlation is made with prior study from 07/17/2018. FINDINGS: Comminuted impacted fracture of the proximal humerus is again seen. Fracture lines remain visible. Glenohumeral alignment is maintained. No new fractures are identified. Alignment at the elbow appears normal. IMPRESSION: Comminuted impacted proximal right humerus fracture, similar to the study one month earlier. Fracture lines remain clearly visible. Dictated by: Dictated on workstation # [id number]
== END ==
LOC: RAD 09:11
PROVIDERS: ATTEND Nurse Practitioner Family
DX: S42.291A Other displaced fracture of upper end of right humerus, initial encounter for closed fracture (principal)
CPT/HCPCS: 73060

== ENCOUNTER → 2019-03-13 | Outpatient (CLI) | payer MEDICARE, MEDICAID ==
[~2019-03-13] MED LIST changes: -AMLO10TA6 PO; +AMLO10TA7 PO
--- NOTE | 2019-03-13 17:09 | Diagnostic Imaging Report ---
INDICATION: Hypoxemia. Time of exam 3:06 p.m. COMPARISON: Comparison is made with prior chest from 03/17/2014. FINDINGS: The heart size is stable. There is some density to the medial aspect of the right base suspicious for infiltrate. Left lung is clear. Pulmonary vascularity is unremarkable. No effusion or pneumothorax is identified. Lower thoracic kyphoplasty changes are noted. IMPRESSION: Right basilar infiltrate suggestive of pneumonia. Dictated by: Dictated on workstation # [id number]
== END ==
LOC: RAD 14:36
PROVIDERS: ATTEND Nurse Practitioner Family
DX: R91.8 Other nonspecific abnormal finding of lung field (principal); R09.02 Hypoxemia; Z98.890 Other specified postprocedural states
CPT/HCPCS: 71046